=== PATIENT | female | born 1970 | race Caucasian/White ===

== ENCOUNTER 2017-02-14 20:26 | Emergency (ER) | payer MEDICAID ==
[~2017-02-14] VITALS: Ht 144.8 cm; Wt 79.0 kg
[2017-02-14] MEDS ORDERED: KETOROLAC 60MG/2ML VIAL IM ONE (23:15)
[2017-02-15 00:17] VITALS: BP 126/75
== END 2017-02-15 01:04 | disposition home or self-care (01) ==
LOC: ER 20:27
DX: S43.402A Unspecified sprain of left shoulder joint, initial encounter (principal); M25.562 Pain in left knee; E11.9 Type 2 diabetes mellitus without complications; V89.2XXA Person injured in unspecified motor-vehicle accident, traffic, initial encounter; Y93.89 Activity, other specified; Y99.8 Other external cause status; Y92.410 Unspecified street and highway as the place of occurrence of the external cause
CPT/HCPCS: 73030; 73562; 81025; 96372; 99284; J1885